=== PATIENT | female | born 1985 | race Hispanic/Latino ===

== ENCOUNTER 2017-05-15 18:50 | Emergency (ER) | payer BC ==
[2017-05-15 19:48] VITALS: BP 114/75; PULSE 62; RESP 16; TEMP 98.5; O2SAT 98
--- NOTE | 2017-05-15 20:40 | ED PDOC ---
Lower Extremity Pain/Injury Time Seen by Provider: 05/15/17 19:52 Chief Complaint (Nursing): Lower Extremity Problem/Injury Chief Complaint (Provider): Left Knee Pain History Per: Patient History/Exam Limitations: no limitations Onset/Duration Of Symptoms: Days (x3) Current Symptoms Are (Timing): Still Present Pain Scale Rating Of: 7 Additional Complaint(s): 31 year old female presents to the ER with left knee swelling after she fell and twisted her knee while skiing three days ago. Patient describes the pain as a sharp pain originally with an intensity of 7/10. She has a flight to [place] and is concerned about the injury for her trip. Patient offers no other medical complaints. - Knee Description Of Injury: Fell, Twisted Past Medical History Reviewed: Historical Data, Nursing Documentation, Vital Signs Vital Signs: Last Vital Signs Temp 98.5 F 05/15/17 19:44 Pulse 62 05/15/17 19:44 Resp 16 05/15/17 19:44 BP 114/75 05/15/17 19:44 Pulse Ox 98 05/15/17 19:44 - Medical History PMH: No Chronic Diseases - Surgical History Surgical History: No Surg Hx - Family History Family History: States: Unknown Family Hx - Social History Current smoker - smoking cessation education provided: No Alcohol: Social - Home Medications Home Medications: Ambulatory Orders Medication Instructions Recorded traMADol [Ultram] 50 mg PO Q6H PRN #15 tab 05/15/17 - Allergies Allergies/Adverse Reactions: Allergies Allergy/AdvReac Type Severity Reaction Status Date / Time amoxicillin Allergy RASH Verified 05/15/17 19:48 nitrofurantoin Allergy RASH Verified 05/15/17 19:48 [From Macrobid] Sulfa (Sulfonamide Allergy RASH Verified 05/15/17 19:48 Antibiotics) Review of Systems ROS Statement: Except As Marked, All Systems Reviewed And Found Negative Musculoskeletal: Positive for: Leg Pain (left knee; swelling) Neurological: Negative for: Weakness, Numbness Physical Exam - Reviewed Nursing Documentation Reviewed: Yes Vital Signs Reviewed: Yes - Physical Exam Appears: Positive for: Non-toxic, No Acute Distress Head Exam: Positive for: NORMAL INSPECTION Skin: Positive for: Normal Color, Warm, DRY Eye Exam: Positive for: Normal appearance Neck: Positive for: Normal, Supple Cardiovascular/Chest: Positive for: Regular Rate, Rhythm Respiratory: Positive for: Normal Breath Sounds. Negative for: Respiratory Distress Pulses-Dorsalis Pedis (L): 2+ Pulses-Dorsalis Pedis (R): 2+ Extremity: Positive for: Tenderness (lateral left knee tenderness), Swelling ( Left knee). Negative for: Normal ROM (Patient has full extension but decreased flexion ), Deformity Neurologic/Psych: Positive for: Alert, Oriented - ECG O2 Sat by Pulse Oximetry: 98 (RA) Pulse Ox Interpretation: Normal Medical Decision Making Medical Decision Making: Time: 20:32 Plan: --X-Ray Left Knee No acute fracture or dislocation on x-ray. Scribe Attestation: Documented by Bella Monge, acting as a scribe for Sujey Cantu PA-C Provider Scribe Attestation: All medical record entries made by the Scribe were at my direction and personally dictated by me. I have reviewed the chart and agree that the record accurately reflects my personal performance of the history, physical exam, medical decision making, and the department course for this patient. I have also personally directed, reviewed, and agree with the discharge instructions and disposition. Disposition - Clinical Impression Clinical Impression: Knee injury - Patient ED Disposition Is Patient to be Admitted: No Counseled Patient/Family Regarding: Diagnosis, Need For Followup, Rx Given - Disposition Referrals: Sarabjit Francisco III, MD [Staff Provider] - Disposition: Routine/Home Disposition Time: 21:41 Condition: GOOD Prescriptions: traMADol [Ultram] 50 mg PO Q6H PRN #15 tab PRN Reason: Pain Instructions: Knee Sprain (DC) Forms: [employer] (Malay)
--- NOTE | 2017-05-16 09:55 | RAD ---
PROCEDURE: Left Knee Radiographs. HISTORY: Pain. COMPARISON: None. FINDINGS: BONES: Normal. No fracture. JOINTS: Normal. No osteoarthritis. JOINT EFFUSION: None. OTHER FINDINGS: None. IMPRESSION: Normal radiographs of the left knee.
== END 2017-05-15 22:02 | disposition home or self-care (01) ==
LOC: H.ER 18:50
DX: S89.92XA Unspecified injury of left lower leg, initial encounter (principal); W19.XXXA Unspecified fall, initial encounter; Y92.89 Other specified places as the place of occurrence of the external cause